=== PATIENT | female | born 1965 | race Caucasian/White ===

== ENCOUNTER 2024-01-16 15:22 | Observation (INO) | payer BC, SELFPAY ==
[2024-01-16] VITALS (22 sets, daily range): BP systolic 123–207; BP diastolic 82–138; PULSE 82–146; TEMP 36.6–36.8; O2SAT 92–98; BMI 27.3; BMI 26.5
--- NOTE | 2024-01-16 15:38 | ECG_ITS ---
The [facility] Test Date: 2024-01-16 Pat Name: FARAZ KIRKLAND Department: Room: - Gender: Female Neuropsychiatric Aide: : 1965 Requested By: [id number] Order Number: [id number] Reading MD: MIGUE HENRY Measurements Intervals [place] Rate: 145 P: -[id number] ID: [id number] QRS: 59 QRSD: 98 T: 70 QT: 356 QTc: 440 Interpretive Statements 1420 Undetermined rhythm (Possible supraventricular tachycardia), consider atrial flutter w/ 2:1 AV block. 3433 Septal myocardial infarction, probably old [address] depression 9150 abnormal ECG No previous ECG available for comparison Electronically Signed On 01-17-2024 7:18:28 EDT by MIGUE HENRY
[2024-01-16 16:06] LABS: Bilirubin Urine NEGATIVE (NEGATIVE); Blood Urine SMALL (NEGATIVE); Clarity Urine CLEAR (CLEAR); Color Urine LT. YELLOW (YELLOW); Glucose Urine UA NEGATIVE (NEGATIVE); Ketones Urine NEGATIVE (NEGATIVE); Leukocyte Esterase Urine NEGATIVE (NEGATIVE); Nitrite Urine NEGATIVE (NEGATIVE); Protein Urine NEGATIVE (NEG/TRACE); Urobilinogen Urine 0.2 EU/dL (0.2-1.0); pH Urine 5.5 (5.0-9.0)
[2024-01-16 16:07] LABS: Basophils Absolute Auto 0.1 10^3/uL (0.0-0.1); Basophils Percent Auto 0.6 % (0.2-2.0); Eosinophils Absolute Auto 0.1 10^3/uL (0.0-0.7); Eosinophils Percent Auto 0.5 % (0.9-7.0); Hematocrit 47.1 % (36.0-48.0); Immature Granulocytes Abs Auto 0.07 10^3/uL (0.00-0.03); Immature Granulocytes Pct Auto 0.6 % (0.0-0.5); Lymphocytes Absolute Auto 2.2 10^3/uL (1.2-3.8); Lymphocytes Percent Auto 20.1 % (20.5-60.0); Mean Corpuscular Hemoglobin 30.1 pg (26.7-34.0); Mean Corpuscular Volume 88.5 fL (81.0-99.0); Mean Platelet Volume 9.2 fL (9.5-13.5); Monocytes Absolute Auto 0.4 10^3/uL (0.3-0.8); Neutrophils Absolute Auto 8.2 10^3/uL (1.4-6.5); Neutrophils Percent Auto 74.2 % (43.0-75.0); Platelet Count 363 10^3/uL (150-450); Red Blood Count 5.32 10^6/uL (4.20-5.40); Red Cell Distribution Width 12.7 % (11.0-15.0); White Blood Count 11.1 10^3/uL (4.0-11.0)
[2024-01-16 16:08] LABS: Urine Microscopic Indicated YES
[2024-01-16 16:18] LABS: Bacteria Urine TRACE #/HPF (NONE SEEN); Cast Seen? NONE SEEN #/LPF (NONE SEEN); Crystals Seen? None Seen #/HPF (None Seen); Mucus Urine NONE SEEN (NONE SEEN); Squamous Epithelial Cell Urine RARE #/LPF (NONE/RARE); Urine Culture Indicated NO; WBC Urine NONE SEEN #/HPF (NONE SEEN)
[2024-01-16 16:21] LABS: Alanine Aminotransferase 27 U/L (14-59); Albumin Globulin Ratio 1.1; Albumin Level 4.1 g/dL (3.4-5.0); Alkaline Phosphatase 119 U/L (46-116); Anion Gap 14.3; Aspartate Amino Transferase 18 U/L (15-37); Bilirubin Total 1.1 mg/dL (0.2-1.0); Calcium 9.5 mg/dL (8.5-10.1); Carbon Dioxide 24.3 mmol/L (21.0-32.0); Chloride 101 mmol/L (98-107); Estimated GFR (African America >60 (>=60); Estimated GFR (Non-African Ame >60 (>=60); Globulin 3.9 g/dL; Glucose 221 mg/dL (74-106); Potassium 3.6 mmol/L (3.5-5.1); Sodium 136 mmol/L (136-145)
--- NOTE | 2024-01-16 17:35 | XR_ITS ---
The [address] [address] Patient Name: FARAZ KIRKLAND MRN: [id number] date: 1965 Sex: F Assigned Patient Location: ER Current Patient Location: ER Accession/Order Number: [id number] Exam Date: 01/16/2024 17:50 Report Date: 01/16/2024 18:28 At the request of: PETRA MARSHALL Procedure: XR chest 1V EXAM: XR chest 1V HISTORY: pain COMPARISON: None. TECHNIQUE: Chest X-ray AP, 1 view FINDINGS: Support devices: Median sternotomy wires are in place. Lungs/pleura: No consolidation, effusion, or pneumothorax. Heart and mediastinum: Normal contours. Status post CABG. Bones: No acute abnormality identified. XR/XR chest 1V Impression: No radiographic evidence of acute cardiopulmonary process. Electronically authenticated by: ROLF LOMBARDO Date: 01/16/2024 18:28
[2024-01-16] MEDS: KETOROLAC TROMETHAMINE 30 MG/ML VIAL 15 MG IVP (17:47)
[2024-01-16 18:10] LABS: Troponin I High Sensitivity 230.8 pg/mL (4.0-51.3)
--- NOTE | 2024-01-16 18:22 | ECG_ITS ---
The [facility] Test Date: 2024-01-16 Pat Name: FARAZ KIRKLAND Department: Room: - Gender: Female Window Clerk: : 1965 Requested By: Order Number: [id number] Reading MD: MIGUE HENRY Measurements Intervals [place] Rate: 86 P: 61 UT: 196 QRS: 47 QRSD: 88 T: 90 QT: 374 QTc: 417 Interpretive Statements 1100 Sinus rhythm 3434 Septal myocardial infarction, age undetermined 8102 Low QRS voltage in chest leads 9150 abnormal ECG Electronically Signed On 01-17-2024 7:19:39 EDT by MIGUE HENRY
--- NOTE | 2024-01-16 19:10 | ED_ITS ---
HPI - Female Genitourinary General Chief complaint: Urogenital-Female Stated complaint: SOB, CP Time Seen by Provider: 01/16/24 15:37 Source: patient Mode of arrival: Wheelchair Limitations: no limitations History of Present Illness HPI Narrative: The patient presented to screaming in pain after she has been retaining urine for the last at least 5 hours, she mentioned that she was driving from [facility] and she did not want to go to the bathroom and she could not be after 6 hours, the patient also was complaining of left shoulder pain Related Data Allergies Allergy/AdvReac Type Severity Reaction Status Date / Time metformin Allergy Intermediate Abdominal Verified 01/16/24 15:33 Pain Review of Systems ROS Status of ROS 10 or more systems reviewed and unremark able except as noted in history and below Exam Narrative Exam Narrative: Nurses notes and vital signs reviewed and patient is not hypoxic. General: Well-appearing and in no apparent distress. Skin: Warm, dry, no pallor noted. No rash. Head: Normocephalic, atraumatic. Neck: Supple, non-tender. Eye: Pupils are equal, round and EOMI. No scleral icterus. Ears, Nose, Mouth, and Throat: TM are clear, no nasal mucosal hypertrophy. Oral mucosa is moist, no posterior oropharynx erythema, uvula is mid-line Cardiovascular: Regular Rate and Rhythm without murmur, gallop or rub. Respiratory: No accessory muscle use or respiratory distress. Lungs are clear to auscultation, no wheezing, rales or rhonchi Chest Wall: no tenderness Back: No midline thoracic or lumbar vertebral tenderness. No CVA tenderness Musculoskeletal: normal ROM, no calf or popliteal tenderness, no lower extremity edema/swelling GI: Abdomen is soft, non-distended. Normal bowel sounds. No masses appreciated. No tenderness to palpation. No rebound, guarding, or rigidity noted. Neurological: A&O x4. No cranial nerve dysfunction observed. No truncal ataxia. Moves all extremities. Sensation intact. Psychiatric: Cooperative and interactive. Normal mood and affect. Constitutional Vital Signs, click to edit/add: Last Vital Signs Temp 98.2 F 01/16/24 15:32 Pulse 92 H 01/16/24 18:00 Resp 25 H 01/16/24 18:00 BP 144/94 H 01/16/24 17:30 Pulse Ox 95 01/16/24 18:00 O2 Del Method Room Air 01/16/24 15:26 Course Vital Signs Vital signs: Vital Signs Pulse Rate 146 H 01/16/24 15:26 Respiratory Rate 24 H 01/16/24 15:26 Blood Pressure 180/100 H 01/16/24 15:26 Pulse Oximetry 94 L 01/16/24 15:26 Oxygen Delivery Method Room Air 01/16/24 15:26 Temperature 98.2 F 01/16/24 15:32 Pulse Rate 92 H 01/16/24 18:00 Respiratory Rate 25 H 01/16/24 18:00 Blood Pressure 144/94 H 01/16/24 17:30 Pulse Oximetry 95 01/16/24 18:00 Oxygen Delivery Method Room Air 01/16/24 15:26 MDM - Female Genitourinary MDM Narrative Medical decision making narrative: Upon arrival the patient was noted to be in sinus tachycardia with a heart rate above 145 the EKG was showing: Sinus tachycardia with [address] elevation or depression repeated EKG after the patient had a Delcid catheter placed was at 88 The patient had a Delcid catheter with 700 cc of urine drained She had no complaint of chest pain but she complained of left shoulder pain and she was tachycardic with a history of coronary artery disease the troponin was evaluated and it showed to be elevated from 63-230 The patient case was discussed with and he agreed that observation in addition to adding aspirin and Lovenox will be the main plan Patient case was discussed with the hospitalist on-call Dr. Finnegan and she agreed on admitting the patient Lab Data Labs: Lab Results 01/16/24 01/16/24 01/16/24 Range/Units 15:43 15:52 17:33 WBC 11.1 H (4.0-11.0) 10^3/uL RBC 5.32 (4.20-5.40) 10^6/uL Hgb 16.0 (12.0-16.0) g/dL Hct 47.1 (36.0-48.0) % MCV 88.5 (81.0-99.0) fL MCH 30.1 (26.7-34.0) pg MCHC 34.0 (29.9-35.2) g/dL RDW 12.7 (11.0-15.0) % Plt Count 363 (150-450) 10^3/uL MPV 9.2 L (9.5-13.5) fL Neut % (Auto) 74.2 (43.0-75.0) % Lymph % (Auto) 20.1 L (20.5-60.0) % [place] % (Auto) 4.0 (1.7-12.0) % Eos % (Auto) 0.5 L (0.9-7.0) % Baso % (Auto) 0.6 (0.2-2.0) % Neut # (Auto) 8.2 H (1.4-6.5) 10^3/uL Lymph # (Auto) 2.2 (1.2-3.8) 10^3/uL [place] # (Auto) 0.4 (0.3-0.8) 10^3/uL Eos # (Auto) 0.1 (0.0-0.7) 10^3/uL Baso # (Auto) 0.1 (0.0-0.1) 10^3/uL Abs Immat Gran (auto) 0.07 H (0.00-0.03) 10^3/uL Imm/Tot Granulo (auto) 0.6 H (0.0-0.5) % Sodium 136 (136-145) mmol/L Potassium 3.6 (3.5-5.1) mmol/L Chloride 101 (98-107) mmol/L Carbon Dioxide 24.3 (21.0-32.0) mmol/L Anion Gap 14.3 BUN 16.0 (7.0-18.0) mg/dL Creatinine 0.84 (0.55-1.02) mg/dL Est GFR ( Amer) >60 (>=60) Est GFR (Non-Af Amer) >60 (>=60) BUN/Creatinine Ratio 19.0 Glucose 221 H (74-106) mg/dL Calcium 9.5 (8.5-10.1) mg/dL Total Bilirubin 1.1 H (0.2-1.0) mg/dL AST 18 (15-37) U/L ALT 27 (14-59) U/L Alkaline Phosphatase 119 H (46-116) U/L Troponin I High Sens 61.0 H* 230.8 H* (4.0-51.3) pg/mL Total Protein 8.0 (6.4-8.2) g/dL Albumin 4.1 (3.4-5.0) g/dL Globulin 3.9 g/dL Albumin/Globulin Ratio 1.1 Urine Color Lt. yellow (YELLOW) Urine Clarity Clear (CLEAR) Urine pH 5.5 (5.0-9.0) Ur Specific [place] 1.020 (1.005-1.025) Urine Protein Negative (NEG/TRACE) mg/dL Urine Glucose (UA) Negative (NEGATIVE) mg/dL Urine Ketones Negative (NEGATIVE) mg/dL Urine Occult Blood Small A (NEGATIVE) Urine Nitrite Negative (NEGATIVE) Urine Bilirubin Negative (NEGATIVE) Urine Urobilinogen 0.2 (0.2-1.0) EU/dL Ur Leukocyte Esterase Negative (NEGATIVE) Urine RBC 2-5 A (0-2) #/HPF Urine WBC None seen (NONE SEEN) #/HPF Ur Squamous Epith Cells Rare (NONE/RARE) #/LPF Urine Crystals None seen (None Seen) #/HPF Urine Bacteria Trace A (NONE SEEN) #/HPF Urine Casts None seen (NONE SEEN) #/LPF Urine Mucus None seen (NONE SEEN) Ur Culture Indicated? No Discharge Plan Discharge Chief Complaint: Urogenital-Female Clinical Impression: Acute retention of urine, Elevated troponin Patient Disposition: Admitted as Observation Time of Disposition Decision: 19:12
[2024-01-16] MEDS: ENOXAPARIN SODIUM 80 MG/0.8 ML SYRINGE SUBQ (19:31)
[2024-01-16] MEDS: ASPIRIN 81 MG TAB.CHEW 243 MG PO (19:31)
[2024-01-16] MEDS: NITROGLYCERIN 0.4 MG BOTTLE SL (19:32)
[2024-01-16 21:03] LABS: Triglycerides 181 mg/dL (<=150)
[2024-01-16] MEDS: OMEPRAZOLE 20 MG CAPSULE.DR PO (22:07)
[2024-01-16] MEDS: SODIUM CHLORIDE 0.45 % 1,000 ML 50 ML IV (22:07)
[2024-01-16] MEDS: METOPROLOL TARTRATE 25 MG TABLET PO (22:07)
[2024-01-17] VITALS (45 sets, daily range): BP systolic 124–145; BP diastolic 76–82; PULSE 62–77; TEMP 36.5–36.6; O2SAT 96–97
--- NOTE | 2024-01-17 00:07 | ECG_ITS ---
The [facility] Test Date: 2024-01-16 Pat Name: FARAZ KIRKLAND Department: Room: [facility] Gender: Female Health Plan Advisor: : 1965 Requested By: [id number] Order Number: [id number] Reading MD: MIGUE HENRY Measurements Intervals [place] Rate: 64 P: 42 PA: 188 QRS: 50 QRSD: 94 T: 97 QT: 410 QTc: 420 Interpretive Statements 1100 Sinus rhythm 1102 Sinus arrhythmia 3434 Septal myocardial infarction, age undetermined 9150 abnormal ECG Compared to ECG 01/16/2024 18:27:00 No significant changes Electronically Signed On 01-17-2024 7:22:41 EDT by MIGUE HENRY
[2024-01-17 00:25] LABS: Troponin I High Sensitivity 969.6 pg/mL (4.0-51.3)
[2024-01-17 00:34] LABS: INR 0.95; Prothrombin Time 10.1 sec (9.0-11.6)
[2024-01-17 05:11] LABS: Basophils Absolute Auto 0.1 10^3/uL (0.0-0.1); Basophils Percent Auto 0.6 % (0.2-2.0); Eosinophils Absolute Auto 0.1 10^3/uL (0.0-0.7); Eosinophils Percent Auto 0.6 % (0.9-7.0); Hematocrit 40.6 % (36.0-48.0); Hemoglobin 13.9 g/dL (12.0-16.0); Immature Granulocytes Abs Auto 0.07 10^3/uL (0.00-0.03); Immature Granulocytes Pct Auto 0.6 % (0.0-0.5); Lymphocytes Absolute Auto 4.5 10^3/uL (1.2-3.8); Lymphocytes Percent Auto 38.7 % (20.5-60.0); Mean Corpuscular HGB Conc 34.2 g/dL (29.9-35.2); Mean Corpuscular Hemoglobin 30.2 pg (26.7-34.0); Mean Corpuscular Volume 88.1 fL (81.0-99.0); Mean Platelet Volume 9.6 fL (9.5-13.5); Monocytes Absolute Auto 0.7 10^3/uL (0.3-0.8); Neutrophils Absolute Auto 6.2 10^3/uL (1.4-6.5); Neutrophils Percent Auto 53.5 % (43.0-75.0); Platelet Count 320 10^3/uL (150-450); Red Blood Count 4.61 10^6/uL (4.20-5.40); Red Cell Distribution Width 12.8 % (11.0-15.0); White Blood Count 11.6 10^3/uL (4.0-11.0)
[2024-01-17 05:32] LABS: INR 0.97; Partial Thromboplastin Time 31.1 sec (22.3-36.2); Prothrombin Time 10.3 sec (9.0-11.6)
[2024-01-17 05:39] LABS: Alanine Aminotransferase 21 U/L (14-59); Albumin Level 3.2 g/dL (3.4-5.0); Alkaline Phosphatase 90 U/L (46-116); Anion Gap 8.8; Aspartate Amino Transferase 21 U/L (15-37); BUN Creatinine Ratio 18.1; Bilirubin Total 0.9 mg/dL (0.2-1.0); Calcium 8.6 mg/dL (8.5-10.1); Carbon Dioxide 26.9 mmol/L (21.0-32.0); Chloride 105 mmol/L (98-107); Chol HDL Ratio 5.5; Cholesterol 171 mg/dL (<=200); Estimated GFR (African America >60 (>=60); Estimated GFR (Non-African Ame >60 (>=60); Globulin 3.3 g/dL; Glucose 96 mg/dL (74-106); HDL Cholesterol 31 mg/dL (40-60); Magnesium 2.1 mg/dL (1.8-2.4); Phosphorus 3.9 mg/dL (2.6-4.7); Potassium 3.7 mmol/L (3.5-5.1); Sodium 137 mmol/L (136-145); Total Protein 6.5 g/dL (6.4-8.2); Triglycerides 248 mg/dL (<=150); VLDL CHOLESTEROL 49.6 mg/dL
[2024-01-17 06:53] LABS: Bilirubin Urine NEGATIVE (NEGATIVE); Blood Urine LARGE (NEGATIVE); Clarity Urine CLEAR (CLEAR); Color Urine YELLOW (YELLOW); Glucose Urine UA NEGATIVE (NEGATIVE); Ketones Urine NEGATIVE (NEGATIVE); Leukocyte Esterase Urine NEGATIVE (NEGATIVE); Nitrite Urine NEGATIVE (NEGATIVE); Protein Urine 30 mg/dL (NEG/TRACE); Specific Gravity Urine >=1.030 (1.005-1.025); Urobilinogen Urine 0.2 EU/dL (0.2-1.0); pH Urine 5.5 (5.0-9.0)
[2024-01-17 07:02] LABS: Bacteria Urine TRACE #/HPF (NONE SEEN); RBC Urine 20-50 #/HPF (0-2); WBC Urine NONE SEEN #/HPF (NONE SEEN)
[2024-01-17 07:03] LABS: Cast Seen? NONE SEEN #/LPF (NONE SEEN); Crystals Seen? None Seen #/HPF (None Seen); Mucus Urine MODERATE (NONE SEEN); Squamous Epithelial Cell Urine RARE #/LPF (NONE/RARE)
[2024-01-17] MEDS: HEPARIN SODIUM (PORCINE) 5,000 UNIT/ML VIAL 3900 UNIT IV (07:31)
[2024-01-17] MEDS: HEPARIN SODIUM,PORCINE/D5W 25,000 UNIT/500 ML IV.SOLN 15.6 UNIT IV (07:32)
--- NOTE | 2024-01-17 08:00 | ECG_ITS ---
The [facility] Test Date: 2024-01-17 Pat Name: FARAZ KIRKLAND Department: Room: [facility] Gender: Female Compensation Administrator: : 1965 Requested By: Order Number: [id number] Reading MD: MIGUE HENRY Measurements Intervals [place] Rate: 62 P: 38 MS: 204 QRS: 57 QRSD: 88 T: 90 QT: 432 QTc: 438 Interpretive Statements 1100 Sinus rhythm 3434 Septal myocardial infarction, age undetermined 8102 Low QRS voltage in chest leads 9150 abnormal ECG Electronically Signed On 01-18-2024 6:49:43 EDT by MIGUE HENRY
[2024-01-17] MEDS: LISINOPRIL 20 MG TABLET 40 MG PO (08:33)
[2024-01-17] MEDS: OMEPRAZOLE 20 MG CAPSULE.DR PO (08:33)
[2024-01-17] MEDS: FENOFIBRATE 54 MG TABLET 108 MG PO (08:34)
[2024-01-17] MEDS: ASPIRIN 325 MG TABLET.DR PO (08:34)
[2024-01-17] MEDS: METOPROLOL TARTRATE 25 MG TABLET PO (08:34)
--- NOTE | 2024-01-17 13:14 | PC.NURSE ---
Patient being life flighted to [facility]. Luz Maria called to Alida. All belongings sent with patient.
--- NOTE | 2024-01-17 13:25 | PM.HP ---
HPI H&P: HPI History of Present Illness Chief complaint: ELEVATED TROPONIN, URINE RETENTION Narrative: 58 y/o female with a history of CAD to ER with urinary retention and left shoulder pain. Patient traveling from [facility] and not able to void for about 5 hours. Developed heaviness and pressure in left shoulder and upper chest. Broke out in sweat and clammy. Still not able to void and didn't feel right. Looked up nearest hospital and presented to ER. Delcid placed and drained 700 mL urine. Noted tachycardia and troponin 63. Repeat troponin 230. Discussed with cardiology and recommended trend troponin and would need transfer but no beds at [facility]. Admitted and repeat troponin 675 then 930. Heparin drip started. Patient continued to have pressure in shoulder. Patient had 3 vessel CABG in 2008 and no cath since. 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 Opioid HPI Opioid Management Most Recent Pain and Opioid Data: Last Pain Scale 3 01/17/24 07:00 Last Pain Assessment 01/17/24 12:00 Last MAR Pain Assessment 01/16/24 17:47 Last ORT Total Score 0 01/16/24 22:00 Last ORT Risk Category Low Risk 01/16/24 22:00 Review of Systems ROS Constitutional Denies: fever, chills or fatigue Cardiovascular Reports: chest pain; Denies: palpitations, edema or lightheadedness Respiratory Denies: shortness of breath, cough or wheezing Gastrointestinal Denies: abdominal pain, nausea, vomiting or diarrhea Genitourinary Denies: painful urination PFSH PFS Medical History (Updated 01/17/24 @ 09:37 by Ayaan Murrell MD) Sinus tachycardia ?R00.0 - Tachycardia, unspecified (ICD-10) Early menopause ?E28.319 - Asymptomatic premature menopause (ICD-10) Migraine ?G43.909 - Migraine, unspecified, not intractable, without status migrainosus (ICD-10) SOB (shortness of breath) ?R06.02 - Shortness of breath (ICD-10) Surgical History (Updated 01/17/24 @ 04:28 by Terrie Morse) S/P triple vessel bypass ?Z95.1 - Presence of aortocoronary bypass graft (ICD-10) History of bladder suspension procedure ?Z98.890 - Other specified postprocedural states (ICD-10) ?Z87.448 - Personal history of other diseases of urinary system (ICD-10) Social History Highest level of school completed/degree received: high school graduate Gender Identity: female Meds Home Medications and Allergies Home Medications ?Medication ?Instructions ?Recorded ?Confirmed ?Type acetaminophen 325 mg capsule 325 mg PO Q6H PRN fever or pain 01/16/24 01/16/24 History (Tylenol) acetaminophen 500 mg capsule 1,000 mg PO Q6H PRN pain 01/16/24 01/16/24 History aspirin 81 mg capsule 162 mg PO DAILY 01/16/24 01/16/24 History estradiol 10 mcg vaginal tablet 10 mcg vaginal .2xweek 01/16/24 01/16/24 History (Vagifem) evolocumab 140 mg/mL subcutaneous 140 mg subcut .[id number] 01/16/24 01/16/24 History pen injector (Repatha SureClick) fenofibrate micronized 134 mg 134 mg PO DAILY 01/16/24 01/16/24 History capsule lisinopril 40 mg tablet 40 mg PO DAILY 01/16/24 01/16/24 History metoprolol tartrate 25 mg tablet 25 mg PO BID 01/16/24 01/16/24 History oxybutynin chloride 10 mg 10 mg PO DAILY 01/16/24 01/16/24 History tablet,extended release 24 hr semaglutide 1 mg/dose (4 mg/3 mL) 1 mg subcut QWEEK 01/16/24 01/16/24 History subcutaneous pen injector (Ozempic) sumatriptan succinate 25 mg tablet 25 mg PO Q2H PRN migraine headache 01/16/24 01/16/24 History Allergies Allergy/AdvReac Type Severity Reaction Status Date / Time metformin Allergy Intermediate Abdominal Verified 01/16/24 15:33 Pain Exam Constitutional Vital Signs, click to edit/add: Last Vital Signs Temp 97.8 F 01/17/24 04:00 Pulse 74 01/17/24 13:00 Resp 25 H 01/17/24 13:00 BP 124/80 01/17/24 07:36 Pulse Ox 97 01/17/24 04:00 O2 Del Method Room Air 01/17/24 04:00 Documenting provider has reviewed patient's vital signs: yes Common normals: no apparent distress, oriented x3 and alert HENMT Common normals: normocephalic Eye Common normals: PERRL and EOMs intact bilaterally Respiratory Common normals: normal respiratory effort and clear to auscultation bilaterally Cardio Common normals: regular rate, regular rhythm, no gallops, no murmurs and no rub GI Common normals: Normal to inspection, nondistended, normoactive bowel sounds present and non-tender Extremity Common normals: no pedal edema Results Labs Labs: Short CBC 01/16/24 01/17/24 Range/Units 15:52 04:23 WBC 11.1 H 11.6 H (4.0-11.0) 10^3/uL Hgb 16.0 13.9 (12.0-16.0) g/dL Hct 47.1 40.6 (36.0-48.0) % Plt Count 363 320 (150-450) 10^3/uL BMP 01/16/24 01/17/24 15:52 04:23 Sodium 136 137 Potassium 3.6 3.7 Chloride 101 105 Carbon Dioxide 24.3 26.9 BUN 16.0 13.0 Creatinine 0.84 0.72 Glucose 221 H 96 Calcium 9.5 8.6 Liver Function 01/16/24 01/17/24 Range/Units 15:52 04:23 Total Bilirubin 1.1 H 0.9 (0.2-1.0) mg/dL AST 18 21 (15-37) U/L ALT 27 21 (14-59) U/L Alkaline Phosphatase 119 H 90 (46-116) U/L Albumin 4.1 3.2 L (3.4-5.0) g/dL Urine 01/16/24 01/16/24 Range/Units 05:30 15:43 Urine Color Yellow Lt. yellow (YELLOW) Urine Clarity Clear Clear (CLEAR) Urine pH 5.5 5.5 (5.0-9.0) Ur Specific [place] >=1.030 A 1.020 (1.005-1.025) Urine Protein 30 A Negative (NEG/TRACE) mg/dL Urine Glucose (UA) Negative Negative (NEGATIVE) mg/dL Assessment and Plan Assessment and Plan (1) NSTEMI (non-ST elevated myocardial infarction): (2) CAD (coronary artery disease): (3) Elevated troponin: (4) Type 2 diabetes mellitus with hyperglycemia: (5) Acute retention of urine: Plan Presented with NSTEMI and elevated troponin. On heparin drip and will continue. Discussed case with hospitalist in [place], Dr. Stanley, who accepted patient for transfer. Patient transferred in stable condition. Urinary Catheter Management Urinary Catheter Management Urethral: Cath placed during this visit: yes Urethral indwelling: No Insertion date: 01/16/24 Insertion time: 15:30
== END 2024-01-17 13:15 | disposition short-term general hospital (02) ==
LOC: ER 21:44 → ICU 21:45
PROVIDERS: Registered Nurse; Admitting Provider Family Medicine; Emergency Provider Emergency Medicine; PCP Student in an Organized Health Care Education/Training Program; Visit Provider Family Medicine
DX: I21.4 Non-ST elevation (NSTEMI) myocardial infarction (principal); I25.10 Atherosclerotic heart disease of native coronary artery without angina pectoris; R33.9 Retention of urine, unspecified; E11.65 Type 2 diabetes mellitus with hyperglycemia; R79.89 Other specified abnormal findings of blood chemistry; Z95.1 Presence of aortocoronary bypass graft
CPT/HCPCS: 36415; 51702; 71045; 80053; 80061; 81001; 83735; 84100; 84478; 84484; 85025; 85610; 85730; 93005; 94761; 96372; 96374; 96375; 99285; G0378; J1644; J1650; J1885